=== PATIENT | female | born 1955 | race Caucasian/White ===

== ENCOUNTER → 2016-10-21 | Outpatient (CLI) | payer OTHER ==
--- NOTE | 2016-10-21 21:30 | REP ---
Clinical: Trauma . Technique: AP, lateral, bilateral oblique views left ankle. Findings: No acute ankle fracture or dislocation is appreciated. However, lateral view cannot exclude a small chip fracture along the posterior-superior aspect of the navicular bone at the talonavicular joint and correlation with physical examination is recommended. Lateral swelling is suggested. Ankle mortise appears stable. No subcutaneous emphysema or radiodense foreign body. Impression: A small chip fracture along the posterosuperior aspect of the navicular bone at the talonavicular joint along with soft tissue swelling is suggested and requires correlation. Signed by Álvaro Hawkins MD 10/21/2016 09:22 P
--- NOTE | 2016-10-21 21:33 | REP ---
Clinical: Trauma. Technique: AP, lateral, bilateral oblique views of the left foot. Findings: AP and oblique views demonstrate displaced fracture involving the lateral aspect of the cuboid bone with overlying soft tissue swelling to the midfoot. No other obvious fracture or dislocation is appreciated. No subcutaneous emphysema or radiodense foreign body. Impression: Displaced fracture fragments involving the lateral aspect of the cuboid bone with overlying soft tissue swelling. Signed by Álvaro Hawkins MD 10/21/2016 09:25 P
== END ==
LOC: M WUC 15:09
PROVIDERS: ATTEND Physician Assistant
DX: S92.212A Displaced fracture of cuboid bone of left foot, initial encounter for closed fracture (principal); S92.252A Displaced fracture of navicular [scaphoid] of left foot, initial encounter for closed fracture; X58.XXXA Exposure to other specified factors, initial encounter; Y93.9 Activity, unspecified; Y92.9 Unspecified place or not applicable; Y99.8 Other external cause status